=== PATIENT | male | born 1955 | race Caucasian/White ===

== ENCOUNTER 2022-07-24 07:15 | Observation (INO) ==
--- NOTE | 2022-07-17 15:28 | PAT Medication Instructions ---
Medication Instructions Date of Service July 17, 2022 Home Medications Medication Instructions Recorded rotigotine 6 mg/24 hour 6 mg transdermal DAILY 90 days #90 11/27/21 transdermal 24 hour patch (Neupro) ea apremilast 30 mg tablet (Otezla) 30 mg PO BID #180 tabs 05/04/22 clonazepam 2 mg tablet 2 mg PO HS #30 tabs 06/08/22 hydrocodone 5 mg-acetaminophen 325 1 tab PO TID PRN pain #15 tabs 06/11/22 mg tablet diclofenac sodium 75 mg 75 mg PO BID #60 tabs 07/14/22 tablet,delayed release tramadol 50 mg tablet 50 mg PO Q8H PRN pain #30 tabs 07/14/22 multivitamin (Daily Multiple tablet) 1 tab PO QPM venlafaxine 150 mg capsule,extended release 24 hr (Effexor XR) 150 mg PO BID levothyroxine 75 mcg tablet 75 mcg PO QAM rotigotine 6 mg/24 hour transdermal 24 hour patch (Neupro) 6 mg transdermal DAILY apremilast 30 mg tablet (Otezla) 30 mg PO BID ascorbic acid (vitamin C) 500 mg capsule,extended release 500 mg PO QPM calcium carbonate 500 mg calcium (1,250 mg) chewable tablet (Calcium 500) 500 mg PO QPM cholecalciferol (vitamin D3) 25 mcg (1,000 unit) capsule 25 mcg PO QPM folic acid 1 mg tablet 1 mg PO QPM mecobalamin (vitamin B12) 500 mcg chewable tablet 500 mcg PO QAM melatonin 5 mg capsule 5 mg PO HS omeprazole 40 mg capsule,delayed release 40 mg PO QAM clonazepam 2 mg tablet 2 mg PO HS hydrocodone 5 mg-acetaminophen 325 mg tablet 1 tab PO TID PRN pain diclofenac sodium 75 mg tablet,delayed release 75 mg PO BID tramadol 50 mg tablet 50 mg PO Q8H PRN pain carbidopa ER 25 mg-levodopa 100 mg tablet,extended release 1 tab PO UD PRN RLS secukinumab 150 mg/mL subcutaneous pen injector (Cosentyx Pen) 300 mg subcut Q30D simvastatin 20 mg tablet 20 mg PO QAM tadalafil 20 mg tablet 20 mg PO DAILY PRN Erectile Dysfunction trazodone 50 mg tablet 50 mg PO HS vitamin E 1 cap PO QPM Continue as directed rotigotine 6 mg/24 hour transdermal 24 hour patch (Neupro) 6 mg transdermal DAILY (do not put on or near surgical site) ASK your surgeon for instructions diclofenac sodium 75 mg tablet,delayed release 75 mg PO BID ASK your prescriber and surgeon apremilast 30 mg tablet (Otezla) 30 mg PO BID secukinumab 150 mg/mL subcutaneous pen injector (Cosentyx Pen) 300 mg subcut Q30D STOP taking 2 weeks before surgery vitamin E 1 cap PO QPM STOP taking 24 hours before surgery tadalafil 20 mg tablet 20 mg PO DAILY PRN Erectile Dysfunction DO NOT take the morning of surgery mecobalamin (vitamin B12) 500 mcg chewable tablet 500 mcg PO QAM Take morning of surgery With a small sip of water, OTHERWISE NOTHING TO EAT OR DRINK AFTER MIDNIGHT: venlafaxine 150 mg capsule,extended release 24 hr (Effexor XR) 150 mg PO BID levothyroxine 75 mcg tablet 75 mcg PO QAM omeprazole 40 mg capsule,delayed release 40 mg PO QAM hydrocodone 5 mg-acetaminophen 325 mg tablet 1 tab PO TID PRN pain (if needed) tramadol 50 mg tablet 50 mg PO Q8H PRN pain (if needed) carbidopa ER 25 mg-levodopa 100 mg tablet,extended release 1 tab PO UD PRN RLS (if needed) simvastatin 20 mg tablet 20 mg PO QAM Take evening before surgery multivitamin (Daily Multiple tablet) 1 tab PO QPM venlafaxine 150 mg capsule,extended release 24 hr (Effexor XR) 150 mg PO BID ascorbic acid (vitamin C) 500 mg capsule,extended release 500 mg PO QPM calcium carbonate 500 mg calcium (1,250 mg) chewable tablet (Calcium 500) 500 mg PO QPM cholecalciferol (vitamin D3) 25 mcg (1,000 unit) capsule 25 mcg PO QPM folic acid 1 mg tablet 1 mg PO QPM melatonin 5 mg capsule 5 mg PO HS clonazepam 2 mg tablet 2 mg PO HS hydrocodone 5 mg-acetaminophen 325 mg tablet 1 tab PO TID PRN pain (if needed) tramadol 50 mg tablet 50 mg PO Q8H PRN pain (if needed) carbidopa ER 25 mg-levodopa 100 mg tablet,extended release 1 tab PO UD PRN RLS (if needed) trazodone 50 mg tablet 50 mg PO HS Other Notes If you have any questions please call us at [phone] or [phone] or [phone] or [phone]
--- NOTE | 2022-07-20 13:59 | Anesthesiology Consultation ---
Date of Service July 20, 2022 Assessment & Plan (1) Encounter for pre-operative examination: - Outpatient joint assessment: Patient is currently scheduled for inpatient pathway. If re-evaluated pending system levels during current pandemic/surgeon requests outpatient pathway, patient is acceptable candidate for outpatient joint program from anesthesia standpoint pending surgeon's office assessment of pt motivation/support/completion of same day joint program preop requirements. Chart Review Chart Review: Acceptable Risk for Surgery and Patient seen in Pre Admission Testing Teaching & Discussion Pre-Anesthesia Teaching/Discussion Notes: Instructed NPO after midnight before surgery, except medications with 15 cc of water. Medication instructions provided according to the PAT guidelines. History Surgery Operation Date: 07/24/22 12:50 Proposed Procedures p Left Anterior Total Hip Arthroplasty - Finesse Marshall DO Height/Weight Height: 5 ft 1 in Weight: 104.326 kg Allergies Allergy/AdvReac Type Severity Reaction Status Date / Time No Known Allergies Allergy Verified 07/17/22 10:59 Medications Home Medications Medication Instructions Recorded Confirmed Last Taken multivitamin (Daily Multiple 1 tab PO QPM 10/25/19 07/17/22 Unknown tablet) venlafaxine 150 mg 150 mg PO BID 10/25/19 07/17/22 Unknown capsule,extended release 24 hr (Effexor XR) levothyroxine 75 mcg tablet 75 mcg PO QAM 05/29/21 07/17/22 Unknown rotigotine 6 mg/24 hour 6 mg transdermal DAILY 90 days #90 11/27/21 07/17/22 Unknown transdermal 24 hour patch (Neupro) ea apremilast 30 mg tablet (Otezla) 30 mg PO BID #180 tabs 05/04/22 07/17/22 Unknown ascorbic acid (vitamin C) 500 mg 500 mg PO QPM 05/04/22 07/17/22 Unknown capsule,extended release calcium carbonate 500 mg calcium 500 mg PO QPM 05/04/22 07/17/22 Unknown (1,250 mg) chewable tablet (Calcium 500) cholecalciferol (vitamin D3) 25 25 mcg PO QPM 05/04/22 07/17/22 Unknown mcg (1,000 unit) capsule folic acid 1 mg tablet 1 mg PO QPM 05/04/22 07/17/22 Unknown mecobalamin (vitamin B12) 500 mcg 500 mcg PO QAM 05/04/22 07/17/22 Unknown chewable tablet melatonin 5 mg capsule 5 mg PO HS 05/04/22 07/17/22 Unknown omeprazole 40 mg capsule,delayed 40 mg PO QAM 05/04/22 07/17/22 Unknown release clonazepam 2 mg tablet 2 mg PO HS #30 tabs 06/08/22 07/17/22 Unknown hydrocodone 5 mg-acetaminophen 325 1 tab PO TID PRN pain #15 tabs 06/11/22 07/17/22 Unknown mg tablet diclofenac sodium 75 mg 75 mg PO BID #60 tabs 07/14/22 07/17/22 Unknown tablet,delayed release tramadol 50 mg tablet 50 mg PO Q8H PRN pain #30 tabs 07/14/22 07/17/22 Unknown carbidopa ER 25 mg-levodopa 100 mg 1 tab PO UD PRN RLS 07/17/22 07/17/22 Unknown tablet,extended release secukinumab 150 mg/mL subcutaneous 300 mg subcut Q30D 07/17/22 07/17/22 Unknown pen injector (Cosentyx Pen) simvastatin 20 mg tablet 20 mg PO QAM 07/17/22 07/17/22 Unknown tadalafil 20 mg tablet 20 mg PO DAILY PRN Erectile 07/17/22 07/17/22 Unknown Dysfunction trazodone 50 mg tablet 50 mg PO HS 07/17/22 07/17/22 Unknown vitamin E 1 cap PO QPM 07/17/22 07/17/22 Unknown Past Medical History Medical History (Updated 07/20/22 @ 16:12 by Aimee Mata PA-C) Anemia chronic to available record review, over the past year Hgb 12-13 Anxiety and depression GERD (gastroesophageal reflux disease) controlled, stable per pt Hyperlipidemia Hypothyroidism Psoriatic arthritis RLS (restless legs syndrome) Patient denies h/o stroke, seizures, heart attack, heart failure, DM, HTN, blood clots or blood transfusions. Exercise / Class Metabolic Activity II 4-5 Yardwork/Stairs/Walk up hill (denies chest discomfort or shortness of breath with 1 FOS) Past Family History Family History Mother Hypertension RLS (restless legs syndrome) Father Heart disease RLS (restless legs syndrome) Past Surgical History Surgical History Hx of colonoscopy Hx of microdiscectomy 30 years ago Past Anesthesia History No Hx of Anesthesia Complications and No Family Hx of Anesthesia Complications History of PONV No Hx of PONV and No Hx of Motion Sickness Social History Smoking Status: Never smoker Do You Dip or Chew Tobacco: No Hx Alcohol Use: Yes Alcohol type: beer alcohol intake frequency: 0-2 drinks per day Hx Substance Use: No substance use type: does not use Review of Systems Snoring, denies witnessed apneas. Patient denies chest pain, shortness of breath, dyspnea on exertion, fever, chills, cough, wheezing, or palpitations. Physical Exam Vital Signs Vitals BP 122/75 P 78 TEMP 97.9 SP02 96% on RA RESP 17 Physical Full cervical extension range of motion without pain TMD 3.5 finger breadths Mallampati Score 2 Dentition: intact, denies chipped or loose teeth, caps/crowns, implants or bridges Lungs: normal respiratory effort. Good air movement, clear throughout to auscultation, no adventitious breath sounds Cardiac: regular rate and rhythm, no murmurs noted Carotid arteries: negative bruit bilat Lab Results Anesthesia Preop Results Results Anesthesia Widget: WBC 4.98 K/ul (4.8-10.8) 07/20/22 Hgb 12.5 g/dl (14.0-18.0) L 07/20/22 Hct 38.1 % (42.0-52.0) L 07/20/22 Plt 226 K/uL (130-400) 07/20/22 Na 136 mmol/L (136-145) 07/20/22 K 3.9 mmol/L (3.5-5.1) 07/20/22 Cl 104 mmol/L (98-107) 07/20/22 CO2 26 mmol/L (21-32) 07/20/22 BUN 19 mg/dl (6-23) 07/20/22 Creat 0.81 mg/dl (0.6-1.4) 07/20/22 Glucose Level 96 mg/dl (70-99(Fasting)) 07/20/22 PT 10.5 Seconds (9.0-12.0) 07/20/22 PTT 27.9 Seconds (21.0-31.0) 07/20/22 INR 1.0 (0.9-1.1) 07/20/22 Blood Type AB Positive 07/20/22 Antibody Screen NEGATIVE 07/20/22 Testing Electrocardiogram Date: 07/20/22 NSR, rate 67 bpm Minimal voltage criteria for LVH, may be normal variant Chest X-Ray Date: 07/20/22 No acute chest disease COVID-19 Risk Screen Screening Information COVID-19 Screen Date: 07/20/22 Exposure 21 Days Family/Household +COVID Last 21 Days: No Exposure 10 Days Any COVID Exposure Last 10 Days: No Symptoms Last 10 Days Experienced COVID Sx Last 10 Days: No + COVID 0-90 Days COVID + in Last 0-90 Days: No
[~2022-07-24 07:15] MED LIST: ACETAMINOPHEN 500 MG TAB PO SCH; BUPIVACAINE 0.5 % 5 MG/1 ML PF 10ML VIAL ONE; FAMOTIDINE 20 MG TAB PO SCH; GABAPENTIN 300 MG CAP PO SCH; LR 500ML BOLUS, THEN 15ML/HR IV SCH; LR 60ML/HR IV SCH; ORTHO JOINT MIX INFIL SCH; TRANEXAMIC ACID 1,000 MG **IV Intra-op IV SCH; TRANEXAMIC ACID 1,000 MG **IV Pre-op IV SCH; ceFAZolin 2000MG 2,000 MG/15 ML SYR IV SCH; dexAMETHasone 4 MG TAB PO SCH
--- NOTE | 2022-07-24 08:17 | History & Physical Bridge Note ---
Date of Service July 24, 2022 History & Physical Bridge Note I have examined the patient, reviewed the History & Physical and in the interval since the performance of the History & Physical I have noted the following changes of clinical significance: no changes noted
[2022-07-24] MEDS ORDERED: MIDAZOLAM HCL 1 MG/ML 2ML VIAL ONE (08:56)
[2022-07-24] MEDS ORDERED: fentaNYL citrate PF 100 MCG/2 ML VIAL ONE (08:56)
[2022-07-24] MEDS ORDERED: ORTHO JOINT ANESTHETIC ONE (08:59)
[2022-07-24] MEDS ORDERED: KETAMINE 50 MG/5 ML SYRINGE ONE (10:09)
--- NOTE | 2022-07-24 10:42 | Operative Report ---
PG Post Operative Report Pre & Post Diagnosis Operation Date: 07/24/22 09:20 Pre-Op Diagnosis: Degenerative Joint Disease Left Hip Post-Op Diagnosis: Degenerative Joint Disease Left Hip I identified the patient and participated in the time-out.: Yes Procedure Operation Date: 07/24/22 09:20 Actual Procedures p Left Anterior Total Hip Arthroplasty(Left) - Finesse Marshall DO Surgeon Finesse Marshall DO Se[employer] Delivery [employer] Officer Finesse Mcclain PA-C Estimated Blood Loss 300 Findings Consistent with Post-Op Diagnosis Specimens Left femoral head Description of Procedure Implants used I used a [employer]immer[employer]omet total hip arthroplasty system with a size 2 high offset Avenir Complete stem, a 54 mm G7 cup with a 25mm screw, an E1 polyethylene li ner, a 40 mm ceramic head with a +3.5 neck. Froylan arrived at the hospital for the above procedure. He was seen in the preoperative holding area and the operative extremity was identified and signed. He was given a spinal anesthetic, a preoperative antibiotic, and TXA. He was then taken back to the operating room and laid on the table in the supine position. He was given basic sedation. The operative leg was secured to a Puristst leg positioner. The hip was then prepped and draped in sterile fashion. A timeout was done and the patient and the operative extremity was properly identified. An anterior approach was used. Dissection was taken down through the fascia and the tensor muscle belly was retracted laterally and the rectus was retracted medially. The circumflex vessels were identified and ligated. The capsule was then incised and tagged for later repair. The femoral neck was then cut and the femoral head was removed. The acetabulum was exposed. Time was spent doing a complete circumferential labral release. Sequential reaming of the acetabulum up to a size 53 reamer was done. Final reamings were done under fluoroscopy to ensure appropriate version. A Biomet 54 mm G7 cup was then impacted into place. A single 25 mm screw was placed. The E1 polyethylene liner was then snapped into place. Surrounding soft tissues were then injected with 100 cc of an orthopedic pain control cocktail. The proximal femur was then exposed. Sequential broaching up to a size 2 broach was done. Off that broach a size 40 head with a +3.5 neck was trialed. The hip was reduced and fluoroscopic images showed anatomic alignment of the implants in acceptable length. The broach was removed. The final size 2 high offset Avenir Complete stem was then impacted into place. A ceramic 40 mm head with a +3.5 neck was then impacted onto the stem and the hip was reduced. Final fluoroscopic images showed anatomic alignment of the hip. The capsule was then closed with #1 Vicryl suture. A dilute betadyne lavage was then done for 3 minutes. The joint was then irrigated with normal saline solution. The fascia was closed with #1 PDS suture. Skin was closed with 2-0 Vicryl, rosaline, and a Silverlon dressing. He was then transferred to a hospital bed and taken to the post anesthesia care unit in stable condition. He tolerated the procedure well. Finesse Mcclain PA-C, was present for the entire procedure. He was critical for patient positioning, prepping, draping, retraction exposure, wound closure and application of sterile dressing. I attest to the content of the Intraoperative Record and any orders documented therein. Any exceptions are noted below.
[2022-07-24] MEDS ORDERED: PROPOFOL IV EMULSION 10 MG/ML 20 ML VIAL IV ONE (10:53)
[2022-07-24] MEDS ORDERED: LIDOCAINE 2% 2 ML VIAL/AMP(20MG/ML) INFIL ONE (10:53)
--- NOTE | 2022-07-24 11:50 | XRay Report ---
XR hip 1V LT w pelvis CLINICAL HISTORY: IN PACU - Post Surgical TECHNIQUE: 2 views of the left hip and single frontal view of the pelvis were obtained. Comparison: Comparison is made to sacroiliac joint radiographs 05/08/2022 FINDINGS: Patient is status post total hip arthroplasty with expected postsurgical changes including soft tissu e swelling and subcutaneous emphysema. IMPRESSION: Expected postoperative appearance status post placement of total hip arthroplasty. ACT 112: Negative or not required by law. Electronically signed by: Terrance Lauren M.D. 07/24/2022 11:48 AM
[2022-07-24] MEDS ORDERED: NALOXONE HCL 0.4 MG/1 ML VIAL/CARP IV PRN (12:25)
[2022-07-24] MEDS ORDERED: bisacodyL 10 MG SUPP PR PRN (12:25)
[2022-07-24] MEDS ORDERED: MAGNESIUM HYDROXIDE SUSP 30 ML UDC PO PRN (12:25)
[2022-07-24] MEDS ORDERED: METOCLOPRAMIDE HCL INJ 5 MG/ML 2 ML VIAL IV PRN (12:25)
[2022-07-24] MEDS ORDERED: HYDROmorphone INJ 0.5 MG/0.5 ML SYR IV PRN (12:25)
[2022-07-24] MEDS ORDERED: CARBIDOPA/LEVODOPA 25/100MG EXT REL TAB PO PRN (12:25)
[2022-07-24] MEDS ORDERED: ONDANSETRON INJ 2 MG/ML 2 ML VIAL IV PRN (12:25)
[2022-07-24] MEDS: SODIUM CHLORIDE 0.9% 1000ML 1,000 ML IV SCH ×2 (12:48→23:25)
[2022-07-24] MEDS: KETOROLAC 30 MG/ML VIAL IV SCH ×2 (12:48→19:15)
--- NOTE | 2022-07-24 12:53 | Fluoroscopy Report ---
INTRAOPERATIVE RADIOGRAPH CLINICAL HISTORY: Left hip arthroplasty. Fluoro time: 12 seconds Ka,r: 1.64 mGy FINDINGS: A single spot fluoroscopic image of the left hip is presented. A bipolar left hip arthropla sty is in near anatomic alignment. A single cortical lag screw transfixes the acetabular cup. There i s no evidence of acute fracture on this fluoroscopic view. IMPRESSION: Intraoperative image from a left hip arthroplasty procedure as above. Electronically signed by: Og Pop M.D. 07/24/2022 12:51 PM
[2022-07-24] MEDS: ACETAMINOPHEN 500 MG TAB PO SCH ×2 (13:02→21:07)
--- NOTE | 2022-07-24 14:19 | Anesthesiology Progress Note ---
Date of Service July 24, 2022 Anesthesia Post Procedure Vital Signs Vital Signs: Temp Pulse Pulse Pulse Resp BP BP 07/24/22 13:30 97.3 F L 64 16 108/69 07/24/22 13:15 07/24/22 13:00 97.5 F L 59 L 14 121/70 07/24/22 12:30 97.5 F L 58 L 16 112/73 07/24/22 12:10 97.5 F L 61 15 109/70 07/24/22 11:55 60 17 114/67 07/24/22 11:45 96.8 F L 59 L 18 109/63 07/24/22 11:35 59 L 17 110/67 07/24/22 11:25 55 L 15 110/67 07/24/22 11:15 70 18 108/64 07/24/22 11:05 97.2 F L 68 16 106/66 07/24/22 07:53 97.9 F 73 20 134/86 Pulse Ox O2 Del Method O2 Flow Rate 07/24/22 13:30 98 Room Air 07/24/22 13:15 Room Air 07/24/22 13:00 100 Room Air 07/24/22 12:30 100 Room Air 07/24/22 12:10 97 Room Air 07/24/22 11:55 97 Room Air 07/24/22 11:45 95 Room Air 07/24/22 11:35 95 Room Air 07/24/22 11:25 100 Room Air 07/24/22 11:15 100 Room Air 07/24/22 11:05 100 Oxymask 5 07/24/22 07:53 95 Room Air Pain Intensity Left Hip: Pain Intensity: 8 Transfer of Care Handoff Completed per policy Notes Mental Status: alert / awake / arousable and participated in evaluation Patient Amnestic to Procedure: Yes Nausea / Vomiting: adequately controlled Pain: adequately controlled Airway Patency, RR, SpO2: stable & adequate BP & HR: stable & adequate Hydration State: stable & adequate Neuraxial Anesthesia: was administered and sensory block is resolving Anesthetic Complications: no major complications apparent and Pt Satisfied with anesthetic care
[2022-07-24] MEDS: oxyCODONE HCL IR 5 MG TAB (IMMEDIATE RELEASE) PO PRN (17:16)
[2022-07-24] MEDS: ceFAZolin 2000MG 2,000 MG/15 ML SYR IV SCH (17:17)
[2022-07-24] MEDS: DOCUSATE SODIUM 100 MG CAP PO SCH (19:34)
[2022-07-24] MEDS: APREMILAST 30 MG PO SCH (19:34)
[2022-07-24] MEDS: VENLAFAXINE HCL XR 150 MG CAPXR PO SCH (19:36)
[2022-07-24] MEDS: ASPIRIN 81 MG ECTAB PO SCH (19:38)
[2022-07-24] MEDS ORDERED: ROTIGOTINE TD SCH (21:00)
[2022-07-24] MEDS ORDERED: FOLIC ACID 1 MG TAB PO SCH (21:00)
[2022-07-24] MEDS ORDERED: MELATONIN 3 MG TAB PO SCH (21:00)
[2022-07-24] MEDS ORDERED: SENNA 8.6 MG TAB PO SCH (21:00)
[2022-07-24] MEDS ORDERED: clonazePAM 1 MG TAB PO SCH (21:00)
[2022-07-24] MEDS ORDERED: traZODone HCL 50 MG TAB PO SCH (21:00)
[2022-07-25] MEDS: oxyCODONE HCL IR 5 MG TAB (IMMEDIATE RELEASE) PO PRN ×2 (00:08→07:24)
[2022-07-25] MEDS: ceFAZolin 2000MG 2,000 MG/15 ML SYR IV SCH (00:28)
[2022-07-25] MEDS: KETOROLAC 30 MG/ML VIAL IV SCH ×2 (00:29→06:01)
[2022-07-25] MEDS: ACETAMINOPHEN 500 MG TAB PO SCH (05:14)
[2022-07-25] MEDS ORDERED: LEVOTHYROXINE SODIUM 75 MCG TABLET PO SCH (06:30)
[2022-07-25] MEDS: VENLAFAXINE HCL XR 150 MG CAPXR PO SCH (07:20)
[2022-07-25] MEDS: ASPIRIN 81 MG ECTAB PO SCH (07:20)
[2022-07-25] MEDS: APREMILAST 30 MG PO SCH (07:21)
[2022-07-25] MEDS: DOCUSATE SODIUM 100 MG CAP PO SCH (07:21)
[2022-07-25] MEDS ORDERED: dexAMETHasone 4 MG TAB PO SCH (08:00)
[2022-07-25] MEDS ORDERED: PANTOprazole 40 MG TAB PO SCH (09:00)
[2022-07-25] MEDS ORDERED: SIMVASTATIN 20 MG TAB PO SCH (09:00)
[2022-07-25] MEDS ORDERED: CYANOCOBALAMIN (B-12) 500 MCG TABLET PO SCH (09:00)
[2022-07-25] MEDS ORDERED: MULTIVITAMIN TAB PO SCH (09:00)
--- NOTE | 2022-07-25 10:12 | Orthopedic Progress Note ---
Date of Service July 25, 2022 Assessment & Plan (1) Status post left hip replacement: Overall he is doing well. He is not having much pain in the left hip. He will be seen by physical therapy today for ambulation and range of motion exercises. He is on aspirin for DVT prophylaxis. He can be discharged home later today. He will follow-up with orthopedics in 2 weeks. Alysa Galeano was seen and examined at bedside this morning. Overall he is doing very well. Is not having much pain in the left hip. He has been seen by physical therapy already today. He has no complaints.. Review of Systems All systems reviewed & are unremarkable except as noted in HPI & below. Physical Exam On physical examination of the left hip, the dressing is clean and dry. He has active dorsiflexion plantarflexion of his left ankle. Sensations intact throughout.. Results & Data Results & Data Laboratory Results . Diagnostic Findings Postoperative x-rays of the left hip show the prosthesis to be in anatomic ali gnment without any evidence of fracture, dislocation, or loosening. PG Care Time/CCT Total # of Minutes Spent Total Time Spent with Patient: Total time spent is greater than 50% in coordination of care (as documented) at patient's floor/unit and/or counseling patient: Coding Level of Care Code 69663 Post Operative Follow-Up Diagnoses Status post left hip replacement Z96.642
--- NOTE | 2022-07-25 10:13 | Discharge Summary ---
Date of Service July 25, 2022 Principal Diagnosis Same as "Discharge Diagnosis" noted below under Discharge Instructions. Discharge Exam On physical examination of the left hip, the dressing is clean and dry. He has active dorsiflexion plantarflexion of his left ankle. Sensations intact throughout.. Discharge Data Procedures Performed Operation Date: 07/24/22 09:20 Actual Procedures p Left Anterior Total Hip Arthroplasty(Left) - Finesse Marshall DO Ordered Studies 07/24/22 09:20 FL hip LT 1V Routine Hospital Course (1) Status post left hip replacement: On July 24, 2022 Froylan arrived at [facility] and underwent a left hip replacement without complication. He had a spinal anesthetic. Postoperatively he was started on aspirin for DVT prophylaxis and transferred to the general orthopedic floors. His hospital course was uneventful. On postop day #1, his vital signs were stable and his pain was well controlled. He was able to participate well with physical therapy doing ambulation and range of motion exercises. He was then discharged home. He will follow-up with orthopedics in 2 weeks. PG Care Time/CCT Total # of Minutes Spent Total Time Spent with Patient: Total time spent is greater than 50% in coordination of care (as documented) at patient's floor/unit and/or counseling patient: Discharge Plan Discharge Items Patient Disposition: Home - Home Health Services Reason For Visit: POST SURGICAL CARE Discharge Diagnosis: Left hip replacement Activity: As commented below Non-emergency contact: Surgeon Call non-emergency contact if: your wound has increased redness and your wound has increased drainage Follow-up/Referrals: Ekta Vásquez D.O. [Primary Care Provider] - Diet: Regular Addtl Attending Provider Instructions: Activity and Therapy Recommendations: * If you are using [facility] then therapy will be provided at your home until they feel you have accomplished all of your goals. * If you are using [facility] then Physical Therapy will be provided until they feel you are ready to start Outpatient Physical Therapy. * If you are not using home therapy then Outpatient Physical Therapy should start about 3-5 days from your day of surgery. Therapy will last about 6-10 weeks * You were shown a series of exercises in the hospital. Do these exercises three times each day including the exercises you were shown in physical therapy. * Get up and walk several times each day.~ For the first four weeks, try not to stand or walk for more than one hour at a time. If you do stand or walk for more than one hour, you will not hurt anything, but your leg will likely swell.~~ * As you feel comfortable, you may change from the walker or crutches to a cane and~then to independent walking. Medications: * Narcotic You will likely be sent home from the hospital with a prescription for the narcotic pain medication that worked best throughout your stay. * Aspirin Most patients will be required to take Aspirin 81mg twice a day for 6 weeks after surgery. This is obtained [id number] and a prescription is not necessary. * Other medications may be prescribed for specific circumstances. If you have any questions, please call the office at . * Resume previous home medications unless otherwise instructed TEDs/Elastic Stockings: The white elastic stockings help limit swelling and prevent blood clots from forming in your legs. The more you wear them, the more they work. Wear them for six weeks. Dressing Care: Leave the Silverlon dressing in place for 7 days. After 7 days you may remove the dressing. If the incision is not draining then you may leave the rosaline open to air. If there is a little bit of drainage or if the rosaline are getting stuck on your clothing then cover the incision with a dry dressing. The rosaline will be removed at your 2 week follow-up appointment. Showering: You may shower with the Silverlon dressing in place. Do not let the shower spray hit the dressing directly. Pat the Silverlon dressing dry. If the dressing becomes wet underneath, then simply remove the dressing. Keep the incision dry until you are 7 days out from the day of surgery. After 7 days you may remove the Silverlon dressing and shower with the rosaline exposed. Let soapy water run over the rosaline and pat them dry. Do not scrub or soak the incision. Things To Watch For: * Drainage from the incision site that occurs more than one week after your surgery. * Increased redness at the incision site. * Fever above 102 degrees Fahrenheit. * Unusual chest pain or shortness of breath. * Call [facility] at with any of the above problems Follow-Up Visit: Follow-up with Dr. Marshall's PA (Finesse Mcclain) 2-3 weeks after your day of surgery. He will remove your rosaline and answer any questions. If you have any additional questions or concerns, Dr Marshall is usually in the office at the same time and will be available An appointment was probably scheduled when you signed-up for surgery in the office. If you have any questions call Office Instructions: More detailed instructions as well as Frequently Asked Questions were provided in a folder by our office when you signed-up for surgery. Please review these instructions when you get home. If you have any further questions or concerns, please feel free to call the office at [phone] Pending Studies at Discharge: No Stand-Alone Forms: [facility] Medications and DC Order Prescriptions: New oxycodone-acetaminophen 5-325 mg tablet 1 tab PO Q6H PRN (Reason: pain) Qty: 30 0RF aspirin 81 mg Tablet,Delayed Release (Dr/Ec) 81 mg PO BID 42 Days Qty: 84 0RF Continued venlafaxine [Effexor XR] 150 mg capsule,extended release 24hr 150 mg PO BID multivitamin [Daily Multiple] Tablet 1 tab PO QPM Neupro 6 mg/24 hour patch 24 hour 6 mg transdermal DAILY 90 Days Qty: 90 1RF Rx Instructions: upper right and left arms tramadol 50 mg tablet 50 mg PO Q8H PRN (Reason: pain) Qty: 30 0RF diclofenac sodium 75 mg tablet,delayed release (DR/EC) 75 mg PO BID Qty: 60 2RF levothyroxine 75 mcg tablet 75 mcg PO QAM omeprazole 40 mg capsule,delayed release(DR/EC) 40 mg PO QAM ascorbic acid (vitamin C) 500 mg capsule, extended release 500 mg PO QPM folic acid 1 mg tablet 1 mg PO QPM calcium carbonate [Calcium 500] 500 mg calcium (1,250 mg) tablet,chewable 500 mg PO QPM cholecalciferol (vitamin D3) 25 mcg (1,000 unit) capsule 25 mcg PO QPM melatonin 5 mg capsule 5 mg PO HS mecobalamin (vitamin B12) 500 mcg tablet,chewable 500 mcg PO QAM Otezla 30 mg tablet 30 mg PO BID Qty: 180 3RF simvastatin 20 mg Tablet 20 mg PO QAM tadalafil 20 mg tablet 20 mg PO DAILY PRN (Reason: Erectile Dysfunction) carbidopa-levodopa 25-100 mg tablet extended release 1 tab PO UD PRN (Reason: RLS) trazodone 50 mg tablet 50 mg PO HS Cosentyx Pen 150 mg/mL pen injector 150 mg subcut UD Rx Instructions: takes 150 mg every 2 weeks or twice a month vitamin E 1 cap PO QPM clonazepam [Klonopin] 2 mg tablet 2 mg PO HS Discontinued hydrocodone-acetaminophen 5-325 mg tablet 1 tab PO TID PRN (Reason: pain) Qty: 15 0RF Admission Data Admit Date/Time: 07/24/22 11:04 Attending Provider: Finesse Marshall Admit Provider: Finesse Marshall Primary Care Provider: Ekta Vásquez Other Providers: [facility] Other Interventions: Discharge Summary Assessment (RN) Last Done: 07/25/22 09:38
== END 2022-07-25 10:11 | disposition home health service (06) ==
LOC: 3E 07:15 → ASU 07:15